=== PATIENT | female | born 1950 | race Caucasian/White ===

== ENCOUNTER → 2019-01-29 | Outpatient (CLI) | payer MEDICARE, OTHER ==
--- NOTE | 2019-01-29 13:05 | Diagnostic Imaging Report ---
INDICATION: Screening for osteoporosis. COMPARISON: None. FINDINGS: The bone mineral density of the right hip and lumbar spine was measured. There are no prior studies available for comparison. The total T-score for the spine is -1.6. The total T-score for the right hip is -1.8. The T-score for the right femoral neck is -1.9. All these values indicate osteopenia. The left hip was not evaluated. AP Spine L1-L4: [BMD (g/cm2): 1.010] [T-Score: -1.6] [Z-Score: -0.6] [BMD Previous: NA] [BMD % Change: NA] LT Hip Neck: [BMD (g/cm2): NA] [T-Score: NA] [Z-Score: NA] LT Hip Total: [BMD (g/cm2):NA] [T-Score:NA] [Z-Score: NA] [BMD Previous: NA] [BMD % Change: NA] RT Hip Neck: [BMD (g/cm2):0.767] [T-Score:-1.9] [Z-Score:-0.8] RT Hip Total: [BMD (g/cm2):0.784] [T-score:-1.8] [Z-Score:-0.9] [BMD Previous:NA] [BMD % Change:NA] *Indicates significant change from prior examination based on 95% confidence level. World Health Organization criteria for BMD interpretation classify patients as Normal (T-score at or above -1.0), Osteopenic (T-score between -1.0 and -2.5) or Osteoporotic (T-score at or below -2.5). LIMITATIONS AND MODIFICATION: None. FRACTURE RISK (FRAX SCORE): The ten year probability of (%): Major Osteoporotic Fracture: [17.2] Hip Fracture: [2.9] IMPRESSION: 1. The T scores of the spine and the right hip indicate osteopenia. 2. The left hip was not evaluated. 3. See below National Osteoporosis Foundation guidelines on when to potentially initiate pharmacologic therapy. Based on the National Osteoporosis Foundation Guidelines, pharmacologic treatment should be initiated in any of the following, unless clinical conditions suggest otherwise: * Any patient with prior fragility fracture of the hip or vertebrae. A spine fracture indicates 5X risk for subsequent spine fracture and 2X risk for subsequent hip fracture. * Osteoporosis (T-score <-2.5). * Postmenopausal women and men age 50 and older with low bone mass/osteopenia (T-score between -1.0 and -2.5) by DXA and 10-year major osteoporotic fracture greater than 20% or a 10-year probability of hip fracture greater than 3%. These fracture risks are supplied above in the FRAX score, if applicable. * Clinician judgement and/or patient preferences may indicate treatment for people with 10-year fracture probabilities above or below these levels. Dictated by: Dictated on workstation # [id number]
== END ==
LOC: RAD 07:50
PROVIDERS: ATTEND Family Medicine
DX: M85.88 Other specified disorders of bone density and structure, other site (principal); Z13.820 Encounter for screening for osteoporosis; Z78.0 Asymptomatic menopausal state
CPT/HCPCS: 77080

== ENCOUNTER → 2022-09-05 | Outpatient (CLI) | payer MEDICARE ==
--- NOTE | 2022-09-05 16:42 | Diagnostic Imaging Report ---
EXAMINATION: Chest 2 view HISTORY: ASTHMA EXACERBATION COMPARISON: None available. FINDINGS: Heart size and pulmonary vasculature are normal. The lungs are clear without consolidation, pleural effusion, or pneumothorax. There is mild peribronchial cuffing. The osseous structures are intact. IMPRESSION: 1. No acute radiographic abnormality in the chest. 2. Mild peribronchial cuffing which can be seen with reactive airways disease and history of asthma exacerbation. Dictated by: Dictated on workstation # [id number]
== END ==
LOC: RAD FS 16:07
PROVIDERS: ATTEND Family Medicine
DX: J45.41 Moderate persistent asthma with (acute) exacerbation (principal)
CPT/HCPCS: 71046

== ENCOUNTER → 2022-11-25 | Outpatient (CLI) | payer MEDICARE ==
[~2022-11-25] MED LIST: CATHETER FLUSH 10 ML SYR IV PRN; HOLD METFORMIN - RECEIVED CONTRAST 20 ML VIAL IV SCH; IOHEXOL 350 MG/ML 100 ML (OMNIPAQUE 350) VIAL IV ONE; NS 100 ML (IVPB) BAG IV ONE
--- NOTE | 2022-11-25 13:31 | Diagnostic Imaging Report ---
PROCEDURE: CT abdomen with and without contrast. TECHNIQUE: Multiple contiguous axial CT images of the abdomen were obtained prior to and after intravenous administration of iodinated contrast. Auto Exposure Controls were utilized during the CT exam to meet ALARA standards for radiation dose reduction. INDICATION: Left renal mass noted on outside ultrasound. COMPARISON: No prior imaging is available for comparison. The lung bases are clear. Liver does show some generalized low attenuation suggestive of hepatic steatosis. No discrete liver mass is identified. Gallbladder is unremarkable. The pancreas and spleen are unremarkable. There is nodularity involving the bilateral adrenal glands the largest on the left approximately 2 cm. Nodule in the right adrenal gland is 1.3 cm. There is a solid mass extending exophytically from the lower pole of the left kidney measuring 2.2 x 2.5 cm. Smaller cortical low-attenuation lesions are noted in both kidneys which may represent cysts. No central retroperitoneal lymphadenopathy is seen. Aorta is nonaneurysmal. Bowel loops are normal caliber. There is no ascites. IMPRESSION: 1. Solid left renal mass, suggestive of renal cell carcinoma. 2. Bilateral adrenal nodules with washout characteristics most suggestive of adenomas. Dictated by: Dictated on workstation # [id number]
== END ==
LOC: LAB FS 12:00
PROVIDERS: ATTEND Family Medicine
DX: N28.89 Other specified disorders of kidney and ureter (principal); E27.8 Other specified disorders of adrenal gland
CPT/HCPCS: 74170; Q9967